=== PATIENT | male | born 1985 | race Caucasian/White ===

== ENCOUNTER 2018-05-29 09:42 | Emergency (ER) | payer SELFPAY ==
--- NOTE | 2018-05-29 11:58 | RAD REPORT ---
EXAM DESCRIPTION: Ribs Right - 05/29/2018 11:32 am CLINICAL HISTORY: Fall, right sided rib pain COMPARISON: None. FINDINGS: No displaced rib fracture is evident. No aggressive rib lesion. No underlying pneumothorax, effusion, infiltrate or pulmonary contusion. IMPRESSION: Negative right rib series.
--- NOTE | 2018-05-29 13:09 | EDPHYS ---
Physician Documentation [facility] Name: Yoel Iraheta Age: 33 yrs Sex: Male : 1985 Arrival Date: 05/29/2018 Time: 09:45 Bed 23 Private MD: None, None ED Physician Yunior Hankins HPI: 05/29 10:36 This 33 yrs old Male presents to ER via Ambulatory with complaints of Back kb Pain. 10:36 The patient presents with pain that is acute. The symptoms are located in the right kb subscapular area. Onset: The symptoms/episode began/occurred 4 day(s) ago. The pain does not radiate. Associated signs and symptoms: The patient has no apparent associated signs or symptoms. The problem was sustained during a fall, while walking. Modifying factors: The patient symptoms are alleviated by nothing, the patient symptoms are aggravated by palpation, deep breath. Severity of symptoms: At their worst the symptoms were moderate, in the emergency department the symptoms are unchanged. The patient has not experienced similar symptoms in the past. The patient has not recently seen a physician. Pt reports he stumbled backwards on Tuesday, fell and hit his right mid back/posterior lower chest/lateral chest on edge of couch. . Historical: - Allergies: 09:51 PENICILLINS; hj - Home Meds: 09:51 None [Active]; hj - PMHx: 09:51 None; hj - PSHx: 09:51 None; hj - Immunization history:: Adult Immunizations up to date. - Social history:: Smoking status: Patient uses tobacco products, smokes one-half pack cigarettes per day, Patient uses alcohol, occasionally. - Ebola Screening: : Patient negative for fever greater than or equal to 101.5 degrees Fahrenheit, and additional compatible Ebola Virus Disease symptoms Patient denies exposure to infectious person Patient denies travel to an Ebola-affected area in the 21 days before illness onset. ROS: 10:35 Constitutional: Negative for fever, chills, and weight loss, Respiratory: Negative for kb shortness of breath, cough, wheezing, and pleuritic chest pain, Abdomen/GI: Negative for abdominal pain, nausea, vomiting, diarrhea, and constipation, Back: Negative for injury and pain, : Negative for injury, bleeding, discharge, and swelling, MS/Extremity: Negative for injury and deformity, Skin: Negative for injury, rash, and discoloration, Neuro: Negative for headache, weakness, numbness, tingling, and seizure. 10:35 Cardiovascular: Positive for chest pain, of the right lateral posterior chest. Exam: 10:35 Constitutional: This is a well developed, well nourished patient who is awake, alert, kb and in no acute distress. Head/Face: Normocephalic, atraumatic. Cardiovascular: Regular rate and rhythm with a normal S1 and S2. No gallops, murmurs, or rubs. Normal PMI, no JVD. No pulse deficits. Respiratory: Lungs have equal breath sounds bilaterally, clear to auscultation and percussion. No rales, rhonchi or wheezes noted. No increased work of breathing, no retractions or nasal flaring. Abdomen/GI: Soft, non-tender, with normal bowel sounds. No distension or tympany. No guarding or rebound. No evidence of tenderness throughout. Skin: Warm, dry with normal turgor. Normal color with no rashes, no lesions, and no evidence of cellulitis. MS/ Extremity: Pulses equal, no cyanosis. Neurovascular intact. Full, normal range of motion. Neuro: Awake and alert, GCS 15, oriented to person, place, time, and situation. Cranial nerves II-XII grossly intact. Motor strength 5/5 in all extremities. Sensory grossly intact. Cerebellar exam normal. Normal gait. 10:35 Chest/axilla: Inspection: normal, Palpation: tenderness, that is mild, that is moderate, of the right lateral posterior chest, that totally reproduces the patient's complaints. Vital Signs: 09:51 BP 153 / 90; Pulse 86; Resp 18; Temp 97.5(TE); Pulse Ox 99% on R/A; Weight 136.08 kg; hj Height 6 ft. 0 in. (182.88 cm); Pain 9/10; 09:51 Body Mass Index 40.69 (136.08 kg, 182.88 cm) MDM: 10:07 Patient medically screened. kb 10:34 Data reviewed: vital signs, nurses notes. Data interpreted: Pulse oximetry: on room air kb is 99 %. Interpretation: normal. Counseling: I had a detailed discussion with the patient and/or guardian regarding: the historical points, exam findings, and any diagnostic results supporting the discharge/admit diagnosis, radiology results, the need for outpatient follow up, a family practitioner, to return to the emergency department if symptoms worsen or persist or if there are any questions or concerns that arise at home. 05/29 10:09 Order name: Ribronald Right XRAY; Complete Time: 11:59 kb Administered Medications: No medications were administered Disposition: 17:00 Co-signature as Attending Physician, Yunior Hankins MD. rn Disposition: 05/29/18 13:08 Discharged to Home. Impression: Contusion of right back wall of thorax. - Condition is Stable. - Discharge Instructions: Contusion, [id number]. - Medication Reconciliation Form, Thank You Letter, Antibiotic Education, Prescription Opioid Use form. - Follow up: Emergency Department; When: As needed; Reason: Worsening of condition. Follow up: Private Physician; When: 2 - 3 days; Reason: Recheck today's complaints, Continuance of care, Re-evaluation by your physician. Signatures: Dispatcher [employer] EDRonel Mckeon, ETHYLENE OXIDE PANELBOARD OPERATOR-C ETHYLENE OXIDE PANELBOARD OPERATOR-Ckb Ellie Montiel RN RN aj1 Yunior Hankins MD MD rn Joaquin, Henry, RN RN Corrections: (The following items were deleted from the chart) 13:17 13:08 05/29/2018 13:08 Discharged to Home. Impression: Contusion of right back wall of aj1 thorax. Condition is Stable. Forms are Medication Reconciliation Form, Thank You Letter, Antibiotic Education, Prescription Opioid Use. Follow up: Emergency Department; When: As needed; Reason: Worsening of condition. Follow up: Private Physician; When: 2 - 3 days; Reason: Recheck today's complaints, Continuance of care, Re-evaluation by your physician. kb
--- NOTE | 2018-05-29 13:09 | ER ---
Nurse's Notes [facility] Name: Yoel Iraheta Age: 33 yrs Sex: Male : 1985 Arrival Date: 05/29/2018 Time: 09:45 Bed 23 Private MD: None, None Diagnosis: Contusion of right back wall of thorax Presentation: 05/29 09:49 Presenting complaint: Patient states: Tuesday i stepped back to far and hurt my R hj lower back on the edge of the couch; since the pain the pain is not getting any better; denies numbness and tingling on lower legs;. Transition of care: patient was not received from another setting of care. Onset of symptoms was May 29, 2018. Risk Assessment: Do you want to hurt yourself or someone else? Patient reports no desire to harm self or others. Initial Sepsis Screen: Does the patient meet any 2 criteria? No. Patient's initial sepsis screen is negative. Does the patient have a suspected source of infection? No. Patient's initial sepsis screen is negative. Care prior to arrival: None. 09:49 Method Of Arrival: Ambulatory 09:49 Acuity: YAMIL 4 hj Triage Assessment: 09:52 General: Appears in no apparent distress. uncomfortable, Behavior is calm, cooperative, hj appropriate for age. Pain: Complains of pain in back. Musculoskeletal: Range of motion: intact in all extremities. Historical: - Allergies: 09:51 PENICILLINS; hj - Home Meds: 09:51 None [Active]; hj - PMHx: 09:51 None; hj - PSHx: 09:51 None; hj - Immunization history:: Adult Immunizations up to date. - Social history:: Smoking status: Patient uses tobacco products, smokes one-half pack cigarettes per day, Patient uses alcohol, occasionally. - Ebola Screening: : Patient negative for fever greater than or equal to 101.5 degrees Fahrenheit, and additional compatible Ebola Virus Disease symptoms Patient denies exposure to infectious person Patient denies travel to an Ebola-affected area in the 21 days before illness onset. Screenin:52 Abuse screen: Denies threats or abuse. Denies injuries from another. Nutritional hj screening: No deficits noted. Tuberculosis screening: No symptoms or risk factors identified. Fall Risk None identified. Assessment: 10:12 General: Appears in no apparent distress. uncomfortable, Behavior is calm, cooperative, aj1 appropriate for age. Pain: Complains of pain in right mid back, anterior aspect of right lateral abdomen and posterior aspect of right lateral abdomen Pain does not radiate. Pain currently is 9 out of 10 on a pain scale. Aggravated by repositioning. Neuro: Level of Consciousness is awake, alert, obeys commands, Oriented to person, place, time, situation, Moves all extremities. Full function Gait is steady, Speech is normal, Facial symmetry appears normal. Cardiovascular: Patient's skin is warm and dry. Respiratory: Airway is patent Respiratory effort is even, unlabored, Respiratory pattern is regular, symmetrical. GI: No signs and/or symptoms were reported involving the gastrointestinal system. : No signs and/or symptoms were reported regarding the genitourinary system. EENT: No signs and/or symptoms were reported regarding the EENT system. Derm: No signs and/or symptoms reported regarding the dermatologic system. Skin is pink, warm \T\ dry. normal. Musculoskeletal: Circulation, motion, and sensation intact. Range of motion: intact in all extremities. 11:07 Reassessment: Patient appears in no apparent distress at this time. No changes from aj1 previously documented assessment. Patient and/or family updated on plan of care and expected duration. Pain level reassessed. Patient is alert, oriented x 3, equal unlabored respirations, skin warm/dry/pink. 12:10 Reassessment: Patient appears in no apparent distress at this time. No changes from aj1 previously documented assessment. Patient and/or family updated on plan of care and expected duration. Pain level reassessed. Patient is alert, oriented x 3, equal unlabored respirations, skin warm/dry/pink. 13:16 Reassessment: Patient is not in room, patient left prior to signing discharge papers. aj1 Vital Signs: 09:51 BP 153 / 90; Pulse 86; Resp 18; Temp 97.5(TE); Pulse Ox 99% on R/A; Weight 136.08 kg; hj Height 6 ft. 0 in. (182.88 cm); Pain 9/10; 09:51 Body Mass Index 40.69 (136.08 kg, 182.88 cm) ED Course: 09:45 Patient arrived in ED. sb2 09:46 None, None is Private Physician. sb2 09:50 Triage completed. hj 09:52 Arm band placed on left wrist. hj 09:52 Patient has correct armband on for positive identification. Bed in low position. Call hj light in reach. Side rails up X 1. 10:04 Ellie Montiel, RN is Primary Nurse. aj1 10:07 Ronel Lowe FNP-C [facility]. kb 10:07 Yunior Hankins MD is Attending Physician. kb 10:12 No provider procedures requiring assistance completed. aj1 11:28 Ribs Right XRAY In Process Unspecified. EDMS 13:16 Patient did not have IV access during this emergency room visit. aj1 Administered Medications: No medications were administered Outcome: 13:08 Discharge ordered by . kb 13:17 Discharged to home aj1 13:17 Condition: good 13:17 Discharge instructions given to no one, patient left prior to signing discharge instructions 13:17 Patient left the ED. aj1 Signatures: Dispatcher [employer] EDAK Ronel Lowe FNP-C FARM APPRAISER-Ellie Daly RN RN aj1 Hernan Hicks, TUCKER RN Christa Acosta sb2 Corrections: (The following items were deleted from the chart) 09:53 09:51 Pulse 86bpm; Resp 18bpm; Pulse Ox 99% RA; Temp 97.5F Temporal; 136.08 kg; Height hj 6 ft. 0 in.; BMI: 40.6; Pain 9/10; hj
== END 2018-05-29 13:17 | disposition home or self-care (01) ==
LOC: ER 09:42
DX: S20.221A Contusion of right back wall of thorax, initial encounter (principal); W01.190A Fall on same level from slipping, tripping and stumbling with subsequent striking against furniture, initial encounter; Y93.89 Activity, other specified; Y92.9 Unspecified place or not applicable; Z88.0 Allergy status to penicillin; F17.210 Nicotine dependence, cigarettes, uncomplicated
CPT/HCPCS: 99283

== ENCOUNTER 2021-10-23 15:44 | Emergency (ER) | payer SELFPAY ==
--- NOTE | 2021-10-23 16:34 | EDPHYS ---
Physician Documentation [facility] Name: Yoel Iraheta Age: 36 yrs Sex: Male : 1985 Arrival Date: 10/23/2021 Time: 15:46 Bed Waiting Private MD: ED Physician Farhat Lebron HPI: 10/23 16:33 This 36 yrs old Male presents to ER via Ambulatory with complaints of Post Surgical pm1 Pain, Finger Swelling. 16:33 The patient or guardian reports pain, swelling. The complaints affect the left index pm1 finger. Modifying factors: The symptoms are alleviated by nothing, the symptoms are aggravated by nothing. Associated signs and symptoms: Pertinent negatives: fever. Severity of symptoms: in the emergency department the symptoms are unchanged. The patient has not recently seen a physician. 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 He followed up 1 week after surgery and then had sutures removed at the 2 week time frame. Patient presents today to the ER with concerns of pain and swelling. Patient is also concerned that he might not have had all the sutures removed. Sutures were removed by another provider other than the hand surgeon that performed the amputation repair. Historical: - Allergies: 16:16 PENICILLINS; iw ROS: 16:33 Constitutional: Negative for fever, chills, and weight loss. pm1 16:33 Cardiovascular: Negative for chest pain, palpitations, and edema, Respiratory: Negative for shortness of breath, cough, wheezing, and pleuritic chest pain. 16:33 Neuro: Negative for headache, weakness, numbness, tingling, and seizure. 16:33 MS/extremity: Negative for decreased range of motion, pain, paresthesias. 16:33 Skin: Negative for abscesses, cellulitis, swelling. 16:33 All other systems are negative. Exam: 16:33 Constitutional: This is a well developed, well nourished patient who is awake, alert, pm1 and in no acute distress. Head/Face: Normocephalic, atraumatic. 16:33 Cardiovascular: Exam negative for acute changes, Rate: normal, Rhythm: regular, Pulses: no pulse deficits are appreciated. 16:33 Respiratory: Exam negative for acute changes, respiratory distress, shortness of breath. 16:33 Musculoskeletal/extremity: Exam is negative for acute changes, swelling, tenderness. 16:33 Skin: abscess, not appreciated, cellulitis, is not appreciated, negative for dehiscence, discharge or drainage, redness, warmth. 16:33 Neuro: Exam negative for acute changes, Orientation: is normal, Mentation: is normal, Motor: is normal, moves all fours. Vital Signs: 16:16 BP 115 / 82; Pulse 110; Resp 18; Temp 98.0; Pulse Ox 98% on R/A; iw MDM: 16:30 Data reviewed: vital signs. Data interpreted: Pulse oximetry: on room air is 98 %. pm1 Interpretation: normal. Counseling: I had a detailed discussion with the patient and/or guardian regarding: the historical points, exam findings, and any diagnostic results supporting the discharge/admit diagnosis, the need for outpatient follow up, a hand specialist, to return to the emergency department if symptoms worsen or persist or if there are any questions or concerns that arise at home. 16:33 Patient medically screened. pm1 Administered Medications: No medications were administered Disposition Summary: 10/23/21 16:33 Discharge Ordered Location: Home pm1 Problem: new pm1 Symptoms: have improved pm1 Condition: Stable pm1 Diagnosis - Post surgical pain - left index finger pm1 Followup: pm1 - With: Emergency Department - When: As needed - Reason: Worsening of condition Followup: pm1 - With: Private Physician - When: 2 - 3 days - Reason: Recheck today's complaints, Continuance of care, Re-evaluation by your physician Discharge Instructions: - Discharge Summary Sheet pm1 Forms: - Medication Reconciliation Form pm1 - Thank You Letter pm1 - Antibiotic Education pm1 - Prescription Opioid Use pm1 Signatures: Sheeba Mosqueda, RN RN iw Ollie York NP MEDICARE SALES REPRESENTATIVE pm1
--- NOTE | 2021-10-23 16:34 | ER ---
Nurse's Notes [facility] Name: Yoel Iraheta Age: 36 yrs Sex: Male : 1985 Arrival Date: 10/23/2021 Time: 15:46 Bed Waiting Private MD: Diagnosis: Post surgical pain - left index finger Presentation: 10/23 16:14 Chief complaint: Patient states: 4-6 had left index finger severed , was seen at [facility] trauma center on 09-24, and now the tip of that finger is hard and finger is swollen. 16:14 Method Of Arrival: Ambulatory 16:16 Coronavirus screen: At this time, the client does not indicate any symptoms associated iw with coronavirus-19. Ebola Screen: Patient negative for fever greater than or equal to 101.5 degrees Fahrenheit, and additional compatible Ebola Virus Disease symptoms Patient denies exposure to infectious person. Patient denies travel to an Ebola-affected area in the 21 days before illness onset. No symptoms or risks identified at this time. Initial Sepsis Screen: Does the patient meet any 2 criteria? No. Patient's initial sepsis screen is negative. Does the patient have a suspected source of infection? No. Patient's initial sepsis screen is negative. Risk Assessment: Do you want to hurt yourself or someone else? Patient reports no desire to harm self or others. Onset of symptoms was October 23, 2021. 16:16 Acuity: YAMIL 4 iw Historical: - Allergies: 16:16 PENICILLINS; iw Screenin:19 Abuse screen: Denies threats or abuse. Denies injuries from another. Nutritional iw screening: No deficits noted. Tuberculosis screening: No symptoms or risk factors identified. Fall Risk None identified. Assessment: 16:19 General: Appears in no apparent distress. Behavior is calm, cooperative. Pain: Denies iw pain. Neuro: Level of Consciousness is awake, alert, obeys commands, Oriented to person, place, time, situation, Cardiovascular: Patient's skin is warm and dry. Respiratory: Respiratory effort is even, unlabored, Respiratory pattern is regular. Derm: Skin is intact. Musculoskeletal: Range of motion: intact in all extremities. Vital Signs: 16:16 BP 115 / 82; Pulse 110; Resp 18; Temp 98.0; Pulse Ox 98% on R/A; iw ED Course: 15:46 Patient arrived in ED. rg4 16:16 Arm band placed on. iw 16:17 Triage completed. iw 16:20 No provider procedures requiring assistance completed. Patient did not have IV access iw during this emergency room visit. 16:29 Ollie York NP is PHCP. pm1 16:29 Farhat Lebron MD is Attending Physician. pm1 16:54 Sheeba Mosqueda RN is Primary Nurse. iw Administered Medications: No medications were administered Outcome: 16:33 Discharge ordered by . pm1 16:54 Patient left the ED. iw Signatures: Sheeba oMsqueda RN RN iw Ollie York NP RECORD TABULATING CLERK pm1 Mariama Maddox rg4
[2021-10-23 17:36] VITALS: BP 115/82; TEMP 98; O2SAT 98
== END 2021-10-23 16:54 | disposition home or self-care (01) ==
LOC: ER 15:44
DX: G89.18 Other acute postprocedural pain (principal); Z88.0 Allergy status to penicillin
CPT/HCPCS: 99281